=== PATIENT | female | born 1990 | race African-American/Black ===

== ENCOUNTER 2022-07-12 17:00 | Emergency (ER) | payer BC ==
[~2022-07-12] VITALS: Ht 157.5 cm; Wt 54.9 kg
[2022-07-12] MEDS ORDERED: LIDOCAINE 5% PATCH TD ONE ×2 (18:15→18:34)
[2022-07-12] MEDS ORDERED: KETOROLAC TROMETHAMINE 15 MG INJ IM ONE (18:15)
[2022-07-12] MEDS ORDERED: HYDROMORPHONE 1 MG/1 ML DISP.SYRIN IM ONE (18:45)
[2022-07-12 18:49] LABS: *URINE HCG, QUAL NEG (NEGATIVE)
[2022-07-12] MEDS ORDERED: HYDROMORPHONE 2 MG/1 ML DISP.SYRIN ONE (18:52)
[2022-07-12 19:04] LABS: HEMATOCRIT 39.4 % (31.2-41.9); MEAN CORPUSCULAR HEMOGLOBIN 25.1 uug (24.7-32.8); MEAN CORPUSCULAR VOLUME 78.5 fL (75.5-95.3); PLATELET COUNT (AUTO) 326 K/uL (179-408)
[2022-07-12 19:11] LABS: MAGNESIUM 2.1 mg/dL (1.8-2.4); POTASSIUM 3.7 mmol/L (3.5-5.1)
[2022-07-12] MEDS ORDERED: OXYC-128 PO (20:12)
--- NOTE | 2022-07-12 20:26 | NUR ---
Patient discharged to home in stable condition. Written and verbal after care instructions given. Patient verbalizes understanding of instructions. Stressed follow up or return to ER for worsening s/s.
[2022-07-12 20:33] VITALS: BP 145/89
== END 2022-07-12 20:33 | disposition home or self-care (01) ==
LOC: ER 17:00
DX: M54.50 Low back pain, unspecified (principal); G89.29 Other chronic pain; R03.0 Elevated blood-pressure reading, without diagnosis of hypertension; R00.0 Tachycardia, unspecified
CPT/HCPCS: 99284; 80048; 84703; 83735; 85025; 36415; 93005; 96372; J1170; A4663